=== PATIENT | female | born 1945 | race Two or more races ===

== ENCOUNTER 2020-05-05 06:20 | Emergency (ER) | payer SELFPAY ==
[~2020-05-05] VITALS: Ht 160 cm; Wt 78.0 kg
[2020-05-05] MEDS ORDERED: ACETAMINOPHEN 325MG TABLET PO ONE (07:00)
[2020-05-05] MEDS ORDERED: LIDOCAINE 1%/EPI 1:100,000 10 ML VIAL IJ ONE (08:15)
[2020-05-05 09:30] VITALS: BP 138/60
== END 2020-05-05 10:00 | disposition home or self-care (01) ==
LOC: ER 06:20
DX: S00.83XA Contusion of other part of head, initial encounter (principal); W01.190A Fall on same level from slipping, tripping and stumbling with subsequent striking against furniture, initial encounter; Y93.89 Activity, other specified; Y92.018 Other place in single-family (private) house as the place of occurrence of the external cause; E11.9 Type 2 diabetes mellitus without complications; I10 Essential (primary) hypertension; R42 Dizziness and giddiness; Z79.899 Other long term (current) drug therapy
CPT/HCPCS: 12001; 70450; 70486; 72125; 99285; J3490